=== PATIENT | female | born 1960 | race Caucasian/White ===

== ENCOUNTER 2017-11-14 13:07 | Outpatient (CLI) ==
[2014-07-24 16:15] VITALS: BMI 47.2
== END 2017-11-14 13:08 | disposition home or self-care (01) ==
LOC: RAD 13:07
PROVIDERS: ATTEND Internal Medicine
DX: Z12.31 Encounter for screening mammogram for malignant neoplasm of breast (principal)
CPT/HCPCS: 77067

== ENCOUNTER 2018-11-15 06:58 | Outpatient (CLI) ==
[2014-07-24 16:15] VITALS: BMI 47.2
--- NOTE | 2018-11-16 09:19 | ECHO2D ---
Date of Exam: 11/15/18 Ordering Physician: DR. ALEJADNRA GIORDANO Room #: OP Reason for Echo: SHORT OF BREATH M-Mode Normal Adult Results LV Dimensions Normal Adult Results AoV Opening excursions >1.6 >1.6 LVEDD-base- 3.5-5.8 4.6 Ao root dimensions 2.0-3.7 2.9 LVESD-base- 3.1-4.6 L. Atrium dimensions 1.9-3.8 3.6 Post. Wall thickness 0.8-1.1 1.1 IV septum (thickness) 0.7-1.2 1.2 Post. Wall excursion 0.72-1.3 NORMAL Septal motion NORMAL Systolic motion R. Ventricular cavity 1.5-2.0 NORMAL LVEF 60% 50% Paradoxical septal wall motion NORMAL 2-D : 2-D M Mode Echocardiogram was performed using apical four chamber and left parasternal long and short axis views. Mitral, tricuspid and aortic valves appear to be normal. Contractility of the left ventricle seems to be normal, so is the cavity size. Left atrial cavity size and aortic root appear to be normal. There is no pericardial effusion. There is no thrombus noted in the left ventricular or left aortic cavity. No mitral valve prolapse noted. M-MODE: MV: NORMAL AV: NORMAL TV: NORMAL PV: CHAMBER SIZE: NORMAL WALL MOTION: NORMAL PERICARDIUM: NORMAL INTERPRETATION: 1. BORDERLINE LEFT VENTRICULAR HYPERTROPHY 2. NORMAL LEFT VENTRICLE CONTRACTILITY 3. NORMAL VALVES MTDD
== END 2018-11-15 06:59 | disposition home or self-care (01) ==
LOC: CAR 06:58
PROVIDERS: ATTEND Internal Medicine
DX: R06.02 Shortness of breath (principal)
CPT/HCPCS: 93005; 93010

== ENCOUNTER 2019-03-08 10:00 | Outpatient (CLI) ==
[2014-07-24 16:15] VITALS: BMI 47.2
--- NOTE | 2019-03-08 11:56 | CT ---
EXAM: CT LUMBAR SPINE HISTORY: Sciatica, back and hip pain TECHNIQUE: CT lumbar spine without contrast. 3-mm axial sections. Coronal and sagittal reformation s. COMPARISON: 05/12/2016 FINDINGS: There is mild scoliosis convex to the left. No loss of vertebral body height or spondylolisthesis. No acute fracture is seen. There is moderate arthropathy of the sacroiliac joints. Diffuse degenera tive disc and facet disease is present, severe at the mid to lower spine level. This l leads to mult ilevel central canal and neural foraminalnarrowing although probably most apparent at the L3/L4 level where severe facet arthropathy, ligamentum flavum hypertrophy and a broad-based disc bulging leads t o at least moderate central canal stenosis, if not severe. There is moderate bilateral neural forami nal narrowing at this level. At L4/L5, there is also at least moderate central canal stenosis and bi lateral neural foraminal narrowing. Correlation with MRI can be made for more sensitive evaluation o f the discs if indicated. There is no paraspinal fluid collection identified. Incidental note of at herosclerotic disease. IMPRESSION: 1. Diffuse degenerative disc and facet disease most apparent at L3/L4. These degenerative changes h ave slightly advanced since the prior study in 2016. 2. No acute fracture or spondylolisthesis. 3. Consider correlation with MRI if indicated.
== END 2019-03-08 10:01 | disposition home or self-care (01) ==
LOC: RAD 10:00
PROVIDERS: ATTEND Internal Medicine
DX: M54.42 Lumbago with sciatica, left side (principal)